=== PATIENT | female | born 1980 | race Caucasian/White ===

== ENCOUNTER → 2020-05-28 | Outpatient (CLI) | payer OTHER ==
--- NOTE | 2020-05-28 18:09 | REP ---
INDICATION: N63.20 LT BREAST LUMP. The patient reports a lump in the 3 o'clock position of the left breast, present for the last week.. Clinician breast exam describes an indurated lesion at 3 o'clock. COMPARISON: No comparison breast imaging. TECHNIQUE: Bilateral CC and MLO) view(s) were taken. A skin marker is affixed to the skin at the site of the palpable lump in the left breast. Left breast images are augmented by magnified focal spot compression and true mediolateral projection images. 3D tomography was performed and reviewed. Targeted left breast sonography is performed. FINDINGS: Breast parenchyma is heterogeneously dense in a pattern which may inhibit the sensitivity of mammography. There is no dominant density at the site of the palpable lump in the left breast mid visible mammographically. No mass, architectural distortion, or microcalcification is seen here or elsewhere in either breast. No worrisome skin changes seen. No mammographically suspicious finding. The [place] volumetric breast density pattern is C. Targeted left breast sonography: Sonography in the lateral aspect of the left breast demonstrates heterogeneous fibroglandular background echotexture. There are 2 parallel linear cyst duct like structures radiating laterally from the nipple in the area of the palpable lump. These tubular structures are up to 4 mm in thickness and contain mobile hypoechoic debris consistent with inspissated material within dilated retroareolar ducts. No mass lesion or nodule is seen. There is some adjacent Doppler flow suggesting local inflammation. Sonography is otherwise unremarkable.. IMPRESSION: BI-RADS category 3 probably benign findings. Mammogram is negative. Sonography consistent with dilated retroareolar ducts in the lateral aspect of the left breast with inspissated proteinaceous material. Question mastitis. Recommend cyst six-month follow-up study. This patient's [facility] lifetime breast cancer risk assessment score is 12.6%. This mammogram was interpreted with the aid of an FDA-approved computer-aided detection system. The patient states she had a clinical breast exam in May of 2020. The patient letter being requested is M 3. RECOMMENDATION: Repeat sonography in 4-6 months time left breast. Sooner if clinical symptoms warrant. Annual screening mammography.. <Electronically signed by Coy Freedman > 05/28/20 [id number]
== END ==
LOC: M WHC 08:52
PROVIDERS: ATTEND Physician Assistant
DX: N63.21 Unspecified lump in the left breast, upper outer quadrant (principal)
CPT/HCPCS: 76642; 77066; G0279

== ENCOUNTER → 2021-06-05 | Outpatient (REF) | payer OTHER ==
[2021-06-05 13:47] LABS: BASO # 0.1 10^3/uL (0.0-0.2); BASO % 0.8 % (0.0-1.0); EOS # 0.2 10^3/uL (0.0-0.5); EOS % 2.5 % (0.0-3.0); HEMATOCRIT 41.8 % (36.0-47.0); HEMOGLOBIN 13.7 g/dl (12.0-15.5); LYMPH # 2.1 10^3/uL (1.5-5.0); LYMPH % 23.4 % (24.0-44.0); MEAN CORPUSCULAR HEMOGLOBIN 29.3 pg (27.0-33.0); MEAN CORPUSCULAR HGB CONC 32.8 g/dl (32.0-36.5); MEAN CORPUSCULAR VOLUME 89.3 fl (80.0-96.0); MONO # 0.9 10^3/uL (0.0-0.8); MONO % 10.2 % (2.0-8.0); NEUTROPHILS # 5.6 10^3/uL (1.5-8.5); NEUTROPHILS % 62.9 % (36.0-66.0); PLATELET COUNT, AUTOMATED 302 10^3/uL (150-450); RED BLOOD COUNT 4.68 10^6/uL (4.00-5.40); WHITE BLOOD COUNT 8.9 10^3/uL (4.0-10.0)
[2021-06-05 14:46] LABS: ALBUMIN 4.2 GM/DL (3.2-5.2); ALT/SGPT 17 U/L (12-78); BILIRUBIN,TOTAL 0.5 MG/DL (0.2-1.0); BLOOD UREA NITROGEN 18 MG/DL (7-18); CARBON DIOXIDE LEVEL 29 MEQ/L (21-32); CHLORIDE LEVEL 107 MEQ/L (98-107); CHOLESTEROL LEVEL 192 MG/DL (<200); CREATININE FOR GFR 0.76 MG/DL (0.55-1.30); GLOMERULAR FILTRATION RATE > 60.0 (>58); GLUCOSE, FASTING 73 MG/DL (70-100); HDL CHOLESTEROL 50 MG/DL (>40); LDL CHOLESTEROL 125 MG/DL (<100); NON-HDL-C 142 MG/DL; POTASSIUM SERUM 4.1 MEQ/L (3.5-5.1); PROLACTIN 101.5 NG/ML; SODIUM LEVEL 140 MEQ/L (136-145); TOTAL 25(OH) VITAMIN D 15.5 NG/ML (30.0-100.0); TOTAL PROTEIN 7.6 GM/DL (6.4-8.2); TRIGLYCERIDES LEVEL 85 MG/DL (<150)
== END ==
LOC: M SFHCADAM 08:42
PROVIDERS: ATTEND Physician Assistant Medical
DX: D35.2 Benign neoplasm of pituitary gland (principal); Z13.220 Encounter for screening for lipoid disorders; Z13.0 Encounter for screening for diseases of the blood and blood-forming organs and certain disorders involving the immune mechanism

== ENCOUNTER → 2021-06-26 | Outpatient (CLI) | payer OTHER | LOC: M WHC 09:53 | PROVIDERS: ATTEND Physician Assistant Medical | DX: N64.59 Other signs and symptoms in breast (principal); R92.8 Other abnormal and inconclusive findings on diagnostic imaging of breast | CPT/HCPCS: 76642; 77066; G0279 ==

== ENCOUNTER → 2022-06-29 | Outpatient (REF) | payer OTHER | LOC: M SFHCADAM 08:55 | PROVIDERS: ATTEND Physician Assistant Medical | DX: E55.9 Vitamin D deficiency, unspecified (principal) ==

== ENCOUNTER → 2022-10-18 | Outpatient (REF) | payer OTHER | LOC: M SFHCWAGY 17:11 | PROVIDERS: ATTEND Nurse Practitioner Family | DX: Z12.4 Encounter for screening for malignant neoplasm of cervix (principal) | CPT/HCPCS: 87624; G0123 ==

== ENCOUNTER → 2022-10-18 | Outpatient (CLI) | payer OTHER | LOC: M WHC 13:58 | PROVIDERS: ATTEND Nurse Practitioner Family | DX: Z12.31 Encounter for screening mammogram for malignant neoplasm of breast (principal) ==

== ENCOUNTER → 2024-01-31 | Outpatient (CLI) | payer OTHER | LOC: M WHC 14:19 | PROVIDERS: ATTEND Nurse Practitioner Family | DX: Z12.31 Encounter for screening mammogram for malignant neoplasm of breast (principal) ==

== ENCOUNTER 2024-03-15 07:57 | Day surgery (SDC) | payer OTHER ==
[~2024-03-15] VITALS: Ht 167.6 cm; Wt 63.0 kg
[~2024-03-15 07:57] MED LIST: HYDR-3363 PO; LIDOCAINE 2% 100MG/5ML SDV (FOR ANES.) As Ordered ONE; MM S100C PO; VITA200010 PO; propofoL 200 MG/20 ML VIAL As Ordered ONE
[2024-03-15 09:38] VITALS: TEMP 97.9
[2024-03-15 09:55] VITALS: BP 116/83; O2SAT 98
== END 2024-03-15 10:04 | disposition home or self-care (01) ==
LOC: M OPP 07:57
PROVIDERS: ATTEND Internal Medicine Gastroenterology
DX: Z12.11 Encounter for screening for malignant neoplasm of colon (principal); K63.5 Polyp of colon; K64.8 Other hemorrhoids; K59.00 Constipation, unspecified; Z79.899 Other long term (current) drug therapy

== ENCOUNTER → 2024-03-16 | Outpatient (CLI) | payer OTHER ==
[~2024-03-16] MED LIST changes: -LIDOCAINE 2% 100MG/5ML SDV (FOR ANES.) As Ordered ONE; -propofoL 200 MG/20 ML VIAL As Ordered ONE
== END ==
LOC: M PLARAD 13:32
PROVIDERS: ATTEND Nurse Practitioner Family
DX: E22.1 Hyperprolactinemia (principal); D35.2 Benign neoplasm of pituitary gland